=== PATIENT | female | born 1940 | race Caucasian/White ===

== ENCOUNTER → 2023-09-06 | Outpatient (REF) | payer OTHER, SELFPAY | LOC: DHSLP | PROVIDERS: ATTENDING PHYSICIAN Nurse Practitioner Primary Care | DX: G47.33 Obstructive sleep apnea (adult) (pediatric) (principal) | CPT/HCPCS: 95800 ==

== ENCOUNTER → 2023-09-25 07:59 | Outpatient (REF) | payer OTHER, SELFPAY | LOC: DHCBC/DCA 07:59 | PROVIDERS: ATTENDING PHYSICIAN Internal Medicine Cardiovascular Disease; FAMILY PHYSICIAN Nurse Practitioner Primary Care | DX: I10 Essential (primary) hypertension (principal); R07.9 Chest pain, unspecified | CPT/HCPCS: 78452; 93017; A9500; J2785 ==

== ENCOUNTER → 2023-10-01 09:33 | Outpatient (REF) | payer OTHER, SELFPAY | LOC: HWWDC 09:33 | PROVIDERS: ATTENDING PHYSICIAN Nurse Practitioner Primary Care | DX: Z12.31 Encounter for screening mammogram for malignant neoplasm of breast (principal) | CPT/HCPCS: 77063; 77067 ==

== ENCOUNTER → 2024-01-27 08:42 | Outpatient (REF) | payer OTHER, SELFPAY | LOC: HWRAD 08:42 | PROVIDERS: ATTENDING PHYSICIAN Internal Medicine Endocrinology, Diabetes & Metabolism; FAMILY PHYSICIAN Nurse Practitioner Family | DX: E04.2 Nontoxic multinodular goiter (principal); R10.32 Left lower quadrant pain; K57.90 Diverticulosis of intestine, part unspecified, without perforation or abscess without bleeding; Z85.038 Personal history of other malignant neoplasm of large intestine | CPT/HCPCS: 74177; 76536; Q9967 ==

== ENCOUNTER → 2024-10-07 13:59 | Outpatient (REF) | payer OTHER, SELFPAY | LOC: HWWDC 13:59 | PROVIDERS: ATTENDING PHYSICIAN Nurse Practitioner Primary Care | DX: Z12.31 Encounter for screening mammogram for malignant neoplasm of breast (principal) | CPT/HCPCS: 77063; 77067 ==

== ENCOUNTER → 2025-03-26 13:53 | Outpatient (REF) | payer OTHER, SELFPAY | LOC: HWRAD 13:53 | PROVIDERS: ATTENDING PHYSICIAN Nurse Practitioner Primary Care | DX: M85.89 Other specified disorders of bone density and structure, multiple sites (principal); E04.2 Nontoxic multinodular goiter | CPT/HCPCS: 76536; 77080 ==

== ENCOUNTER 2025-04-27 10:16 | Emergency (ER) | payer OTHER, SELFPAY ==
[2025-04-27 10:18] VITALS: BP 183/103
[2025-04-27 11:22] LABS: Hematocrit 41.8 % (37.0-47.0); Hemoglobin 13.8 g/dL (12.0-16.0); Mean Corp Hgb Conc. 33.0 g/dL (33.0-37.0); Mean Corpuscular Volume 89.7 fL (81.0-99.0); Nucleated Red Blood Cells % 0 %; Platelet Count 248 10^3/uL (130-400); Red Cell Dist. Width 13.3 % (11.5-14.5)
[2025-04-27 11:45] LABS: Blood Urea Nitrogen 14 mg/dl (7-17); Calcium 9.6 mg/dl (8.4-10.2); Carbon Dioxide 28 mmol/L (22-30); Chloride 105 mmol/L (98-107); Glucose 97 mg/dl (70-99); Potassium 4.2 mmol/L (3.5-5.1); Sodium 137 mmol/L (135-145); eGFR > 60.00
[2025-04-27 12:00] VITALS: BP 184/96
--- NOTE | 2025-04-27 15:04 | ED.CVA ---
History of Present Illness
General
Chief Complaint: CVA/TIA Symptoms
Source: patient and family
Exam Limitations: none
Time Seen by Provider: 04/27/25 10:53
Onset of Stroke Symptoms
Onset of symptoms known: Yes
Date of onset of symptoms: 04/25/25
History of Present Illness
History of Present Illness:
85-year-old some slurred speech intermittently the last 2 days. Also some foggy feeling. They questions a slight right facial droop although other family members felt this was not an issue. Currently at baseline. Under significant stress with
her out of facility. Patient does take a baby aspirin per day
Past History
Past History
ED Past Medical History: Cancer, HTN and Hypercholesterolemia
ED Past Surgical History: Bowel resection, Cholecystectomy and Gynecological
Social History
Tobacco: Non-smoker
Alcohol: Occasional
Personal:
Living: with family
Family History
Family History: Other (Father with coronary disease and mother with coronary disease)
Review of Systems
Review of Systems
All Other Systems: Not applicable
Respiratory: Reports no symptoms
Cardiac: Reports no symptoms
ABD/GI: Reports no symptoms
Phy Exam
Physical Exam
Physical Exam:
GENERAL: Alert and oriented in no apparent distress
EYE: Orbits normal.
NECK: Supple, no carotid bruit
ENT: Pharynx without erythema
CARDIAC: Regular rate and rhythm without any obvious murmurs.
LUNGS: Clear breath sounds,normal
ABDOMEN: Soft, without focal tenderness or distention
NEUROLOGICAL: Alert and oriented , cranial nerves II through XII intact. Speech normal. No facial droop. Eye confrontation normal. No drift in the arms. [id number] normal. Gait normal. Warm and dry. Perfusing well. Light touch intact.
SKIN: Warm and dry, no rash or lesion, no discoloration, skin intact.
MUSCULOSKELETAL: No edema,no deformity.Good color
PSYCH: Normal and appropriate interaction.
Course
Orders/Labs/Results
Orders:
Orders
04/27/25 11:04
CT Head W/o Iv Contrast Urgent
Comment:
Reason For Exam: Transient slurred speech, questionable transient r
Cardiac Monitoring- Treatment ONCE
IV Insert/Care/Rem.- Treatment PRN
Pulse Ox/cont/shift [RESP] Stat
Quantity: 1
04/27/25 11:05
Electrocardiogram (*1) Stat
Reason for Study: Other
Other Reason for Exam: neuro symptoms
EKG- Treatment ONCE
04/27/25 11:07
US Cerebrovascular Urgent
Comment:
Reason For Exam: Transient slurred speech/right facial droop
04/27/25 11:13
Basic Metabolic Panel Urgent
Complete Blood Count/With Diff Urgent
04/27/25 14:56
Ramipril [Altace] 10 mg PO NOW STA
04/27/25 16:06
Clopidogrel Bisulfate [Plavix] 75 mg PO NOW STA
Abnormal Lab Results
04/27/25
11:13
Absolute Monos (auto) 0.8 H 10^3/uL
(0.1-0.6)
Lymphocytes % 17.2 L %
(20.5-51.1)
Monocytes % 10.3 H %
(1.7-9.3)
04/27/25 11:13
04/27/25 11:13
Vital Signs
Initial and Last Documented VS:
Initial Vital Signs
Temp Pulse Resp BP Pulse Ox
98.0 F 77 20 183/103 95
04/27/25 10:18 04/27/25 10:18 04/27/25 10:18 04/27/25 10:18 04/27/25 10:18
Last Documented Vital Signs
Temp Pulse Resp BP Pulse Ox
98.0 F 77 20 184/96 95
04/27/25 10:18 04/27/25 10:18 04/27/25 10:18 04/27/25 12:00 04/27/25 15:08
MDM/Problems Addressed
Differential Diagnosis Includes:
Patient with transient slurred speech and possible right facial droop recently. Neurologic exam is normal now. Under significant stress. CT head negative. Carotid ultrasound negative. Blood pressure is elevated. She did not take her ramipril
this morning. Will give her dose now and continue some observation. Discussed with neurology. I feel she is medically stable for discharge but will add Plavix and increase her statin.
*Radiology
Radiology exam reviewed: radiology read reviewed (No significant carotid stenosis. Head CT negative)
*Pulse Oximetry
SaO2: 95
Oxygen Mode of Delivery: Room air
Patient hypoxic: no
*EKG
Interpreted by ED Provider?: Yes
Interpretation: abnormal
Comparison EKG: no changes
Rate: normal
Rhythm: sinus
[place]: left axis deviation
Interval: normal interval
QRS Pattern: left vent hypertrophy
Ischemia: no ischemia
*Critical Care Note
Total Time (30-74mins, 75-104mins- exclusive of procedures): Not Applicable
Update Note
Update Note:
1605.... Patient has remained asymptomatic. She missed her early childhood specialist blood pressure medication. She was given it here a little while ago. As blood pressure is 190/96. I do not feel this needs more acute management but just needs continued
outpatient observation. Missing her morning dose may have been a factor. We will start Plavix she will double up her atorvastatin for close follow-up with primary physician.
ED Attending Note
-
Portions of this chart may have been created with voice recognition software.� Occasional wrong word or��sound alike� substitutions may have occurred due to the inherent limitations of voice recognition software.
Discharge Plan
Departure
Patient Disposition: Home (Routine Discharge)
Date of Disposition: 04/27/25
Time of Disposition: 16:07
Patient with high blood pressure during this ER visit?: Yes
Discharge Problem:
Transient slurred speech, Possible TIA
Instructions: Transient Ischemic Attack (DC), BLOOD PRESSURE
Prescriptions:
New
clopidogrel [Plavix] 75 mg tablet
75 mg PO DAILY Qty: 30 0RF
No Action
ramipril 10 MG capsule
10 mg PO BID
aspirin 81 MG tablet,delayed release (DR/EC)
81 mg PO DAILY
atorvastatin 20 mg Tablet
20 mg PO DAILY
polyethylene glycol 3350 [Miralax] 17 gram/dose Powder
4 g PO HS
Referrals:
Jacquelin Polanco CRNP [Family Provider, Internal Medicine] - Follow up in 2-3 days
Activity Restrictions/Additional Instructions:
The Plavix was called into your pharmacy continue the aspirin also
Double up on your atorvastatin
Monitor your blood pressure closely at home. Make sure you get your dose of ramipril in this evening
Close follow-up with your primary physician
Interventions
Interventions:
*Risk Screen - Suicide Last Done: 04/27/25 10:18
*General Assessment Last Done: 04/27/25 10:18
*Neglect/Abuse Screening Last Done: 04/27/25 16:15
*ED- Fall Risk Assessment Last Done: 04/27/25 16:15
*ED COVID-19 Vaccine History Last Done: 04/27/25 11:29
*ED Influenza Vaccine History Last Done: 04/27/25 11:29
*Nursing Disposition Last Done: 04/27/25 16:15
ED- Pulmonary Assessment Last Done: 04/27/25 11:24
ED- Neurological Assessment Last Done: 04/27/25 11:24
ED- Cardiac Assessment Last Done: 04/27/25 11:24
ED Swallowing Screen Last Done: 04/27/25 16:06
Discharge Date and Time
Discharge Date/Time: 04/27/25 16:16
Print Language: [place]
[2025-04-27] MEDS: ALTACE 10 MG PO (15:14)
[2025-04-27] MEDS: PLAVIX 75 MG PO (16:11)
== END 2025-04-27 16:16 | disposition home or self-care (01) ==
LOC: EMR 10:16
PROVIDERS: EMERGENCY PHYSICIAN Emergency Medicine; FAMILY PHYSICIAN Nurse Practitioner Primary Care
DX: R47.81 Slurred speech (principal); E78.00 Pure hypercholesterolemia, unspecified; I10 Essential (primary) hypertension; Z90.49 Acquired absence of other specified parts of digestive tract; Z79.82 Long term (current) use of aspirin
CPT/HCPCS: 99284; 70450; 80048; 85025; 93005; 93880

== ENCOUNTER → 2025-07-08 12:54 | Outpatient (REF) | payer OTHER, SELFPAY | LOC: MRI 3T 12:54 | PROVIDERS: ATTENDING PHYSICIAN Nurse Practitioner Primary Care | DX: G45.9 Transient cerebral ischemic attack, unspecified (principal) | CPT/HCPCS: 70553; A9575 ==

== ENCOUNTER → 2025-07-17 10:48 | Outpatient (REF) | payer OTHER, SELFPAY | LOC: RCS 10:48 | PROVIDERS: ATTENDING PHYSICIAN Nurse Practitioner Primary Care | DX: I10 Essential (primary) hypertension (principal); I51.7 Cardiomegaly; G45.9 Transient cerebral ischemic attack, unspecified | CPT/HCPCS: 93306 ==